=== PATIENT | male | born 1970 | race African-American/Black ===

== ENCOUNTER 2022-11-15 12:38 | Inpatient (IN) | payer MEDICAID, MEDICARE ==
[~2022-11-15] VITALS: Ht 172.7 cm; Wt 66.2 kg
[2022-11-15] MEDS ORDERED: ACETAMINOPHEN 325MG TABLET PO ONE (14:15)
[2022-11-15] MEDS ORDERED: METHOCARBAMOL 500MG TABLET PO ONE (14:15)
[2022-11-15] MEDS ORDERED: KETOROLAC 30MG/ML VIAL IM NR (15:30)
[2022-11-15] MEDS ORDERED: KETOROLAC 30MG/ML VIAL IM ONE (16:00)
[2022-11-15] MEDS ORDERED: OXYCODONE HCL/ACETAMINOPHEN 5/325MG TABLET PO ONE (16:15)
[2022-11-15 18:22] LABS: HEMATOCRIT. 38.4 % (42.0-52.0); HEMOGLOBIN. 12.9 g/dL (14.0-18.0); MEAN CORPUSCULAR HEMOGLOBIN 31.4 pg (28.0-32.0); MEAN CORPUSCULAR VOLUME 93.7 fL (80.0-94.0); MEAN PLATELET VOLUME 11.3 fl (7.4-10.4); PLATELET 140 x1000/uL (130-400); RED CELL DISTRIBUTION WIDTH 15.1 % (11.6-14.6)
[2022-11-15 18:41] LABS: CHLORIDE 96 mEq/L (98-107); PLATELET ESTIMATE NORMAL
[2022-11-15 18:50] LABS: CREATINE KINASE 844 IU/L (39-308)
[2022-11-15] MEDS ORDERED: OXYCODONE HCL/ACETAMINOPHEN 5/325MG TABLET PO NR (19:30)
[2022-11-15] MEDS ORDERED: SODIUM CHLORIDE 0.9% 1,000 ML IV ONE (21:15)
[2022-11-15] MEDS ORDERED: ONDANSETRON HCL 4MG/2ML INJ IV PRN (21:30)
[2022-11-15] MEDS ORDERED: NITROGLYCERIN 0.4MG TABLET SL SL PRN (21:30)
[2022-11-15] MEDS ORDERED: CLONIDINE 0.1MG TABLET PO PRN (21:30)
[2022-11-15] MEDS ORDERED: GUAIFENESIN 200MG/10ML SUGAR FREE UDC PO PRN (21:30)
[2022-11-15] MEDS ORDERED: IPRATROPIUM/ALBUTEROL 0.5-3(2.5)MG/3ML NEB NEB PRN (21:30)
[2022-11-15] MEDS ORDERED: ACETAMINOPHEN 325MG TABLET PO PRN (21:30)
[2022-11-15] MEDS ORDERED: ZOLPIDEM TARTRATE 5MG TABLET PO PRN (21:30)
[2022-11-15] MEDS ORDERED: DOCUSATE SODIUM 100MG CAPSULE PO PRN (21:30)
[2022-11-15] MEDS ORDERED: MAGNESIUM/ALUMINUM HYDROXIDE/SIMETHICONE 30ML UDC PO PRN (21:30)
[2022-11-15 22:08] LABS: T4 FREE 1.23 ng/dL (0.76-1.46)
[2022-11-15 22:39] LABS: VITAMIN B12 SERUM 712 pg/mL (211-911)
[2022-11-16] MEDS ORDERED: KETOROLAC 30MG/ML VIAL IV NR
[2022-11-16 04:54] LABS: BASOPHILS % 0.9 % (0.0-2.0); EOSINOPHILS % 2.4 % (0.0-5.0); HEMATOCRIT. 35.2 % (42.0-52.0); HEMOGLOBIN. 11.9 g/dL (14.0-18.0); LYMPHOCYTES % 8.6 % (20.0-50.0); MEAN CORPUSCULAR HEMOGLOBIN 31.8 pg (28.0-32.0); MEAN PLATELET VOLUME 11.1 fl (7.4-10.4); MONOCYTES % 12.8 % (2.0-8.0); NEUTROPHILS % 75.3 % (40.0-76.0); PLATELET 153 x1000/uL (130-400); RED BLOOD CELL COUNT 3.75 mill/uL (4.7-6.1); RED CELL DISTRIBUTION WIDTH 15.3 % (11.6-14.6)
[2022-11-16 05:25] LABS: CHLORIDE 98 mEq/L (98-107)
[2022-11-16 05:31] LABS: PHOSPHORUS 6.3 mg/dL (2.5-4.9)
[2022-11-16] MEDS: AMLODIPINE 5MG TABLET PO SCH (09:00)
[2022-11-16] MEDS: ENOXAPARIN 30MG/0.3ML SYR SUBCUT SCH (10:23)
[2022-11-16] MEDS: FAMOTIDINE 20MG TABLET PO SCH (10:24)
[2022-11-16] MEDS: TRAMADOL 50MG TABLET PO PRN ×2 (10:25→20:20)
[2022-11-16] MEDS ORDERED: NALOXONE HCL 0.4MG/ML VIAL IV PRN (11:00)
[2022-11-16] MEDS: SEVELAMER CARBONATE 800 MG TABLET PO SCH ×2 (14:20→19:50)
[2022-11-16 22:59] LABS: HEPATITIS B SURFACE ANTIGEN NEGATIVE
[2022-11-17] VITALS (15 sets, daily range): BP systolic 110–162; BP diastolic 51–99
[2022-11-17] MEDS: ACETAMINOPHEN 325MG TABLET PO PRN (00:42)
[2022-11-17] MEDS: TRAMADOL 50MG TABLET PO PRN ×2 (05:53→18:44)
[2022-11-17 07:55] LABS: EOSINOPHILS % 5.5 % (0.0-5.0); HEMATOCRIT. 33.4 % (42.0-52.0); HEMOGLOBIN. 11.2 g/dL (14.0-18.0); LYMPHOCYTES % 11.2 % (20.0-50.0); MEAN CORPUSCULAR HEMOGLOBIN 31.3 pg (28.0-32.0); MEAN CORPUSCULAR VOLUME 93.1 fL (80.0-94.0); MEAN PLATELET VOLUME 11.8 fl (7.4-10.4); MONOCYTES % 12.9 % (2.0-8.0); NEUTROPHILS % 69.4 % (40.0-76.0); PLATELET 143 x1000/uL (130-400); RED BLOOD CELL COUNT 3.59 mill/uL (4.7-6.1); RED CELL DISTRIBUTION WIDTH 14.9 % (11.6-14.6)
[2022-11-17 08:19] LABS: PHOSPHORUS 7.7 mg/dL (2.5-4.9)
[2022-11-17] MEDS: SEVELAMER CARBONATE 800 MG TABLET PO SCH ×3 (08:43→18:44)
[2022-11-17] MEDS: FAMOTIDINE 20MG TABLET PO SCH (08:44)
[2022-11-17] MEDS: ENOXAPARIN 30MG/0.3ML SYR SUBCUT SCH (09:00)
[2022-11-17] MEDS: AMLODIPINE 5MG TABLET PO SCH (09:00)
[2022-11-17] MEDS: DIPHENHYDRAMINE 50MG CAPSULE PO PRN (10:30)
[2022-11-17] MEDS ORDERED: ALBUTEROL (0.083%) 2.5MG/3ML NEB HHN PRN (22:30)
[2022-11-17] MEDS ORDERED: IPRATROPIUM BROMIDE (0.02%) 0.5MG/2.5ML NEB HHN PRN (22:30)
[2022-11-18] VITALS: BP 134/82
[2022-11-18] MEDS: TRAMADOL 50MG TABLET PO PRN ×2 (03:56→15:58)
[2022-11-18 04:00] VITALS: BP 132/80
[2022-11-18 08:00] VITALS: BP 147/85
[2022-11-18 08:00] LABS: EOSINOPHILS % 6.9 % (0.0-5.0); HEMATOCRIT. 34.8 % (42.0-52.0); HEMOGLOBIN. 11.8 g/dL (14.0-18.0); LYMPHOCYTES % 12.3 % (20.0-50.0); MEAN CORPUSCULAR HEMOGLOBIN 31.7 pg (28.0-32.0); MEAN CORPUSCULAR VOLUME 93.5 fL (80.0-94.0); MEAN PLATELET VOLUME 11.3 fl (7.4-10.4); MONOCYTES % 14.4 % (2.0-8.0); NEUTROPHILS % 65.4 % (40.0-76.0); PLATELET 150 x1000/uL (130-400); RED BLOOD CELL COUNT 3.72 mill/uL (4.7-6.1); RED CELL DISTRIBUTION WIDTH 14.8 % (11.6-14.6)
[2022-11-18 08:14] LABS: CHLORIDE 98 mEq/L (98-107)
[2022-11-18] MEDS: AMLODIPINE 5MG TABLET PO SCH (09:00)
[2022-11-18] MEDS: ENOXAPARIN 30MG/0.3ML SYR SUBCUT SCH (09:00)
[2022-11-18] MEDS: FAMOTIDINE 20MG TABLET PO SCH (10:50)
[2022-11-18] MEDS: SEVELAMER CARBONATE 800 MG TABLET PO SCH ×3 (10:50→17:50)
[2022-11-18 12:00] VITALS: BP 132/73
[2022-11-18] MEDS ORDERED: SODIUM POLYSTYRENE SULFONATE 15 G/60 ML BOT PO SCH (12:30)
[2022-11-18 16:00] VITALS: BP 126/78
[2022-11-18 20:00] VITALS: BP 156/82
[2022-11-19] VITALS: BP 137/91
[2022-11-19] MEDS: TRAMADOL 50MG TABLET PO PRN ×3 (02:04→23:26)
[2022-11-19 04:00] VITALS: BP 134/89
[2022-11-19 07:45] LABS: BASOPHILS % 0.9 % (0.0-2.0); EOSINOPHILS % 5.9 % (0.0-5.0); HEMOGLOBIN. 11.8 g/dL (14.0-18.0); LYMPHOCYTES % 12.3 % (20.0-50.0); MEAN CORPUSCULAR HEMOGLOBIN 32.1 pg (28.0-32.0); MEAN CORPUSCULAR VOLUME 92.7 fL (80.0-94.0); MEAN PLATELET VOLUME 11.6 fl (7.4-10.4); MONOCYTES % 13.8 % (2.0-8.0); NEUTROPHILS % 67.1 % (40.0-76.0); PLATELET 151 x1000/uL (130-400); RED BLOOD CELL COUNT 3.67 mill/uL (4.7-6.1); RED CELL DISTRIBUTION WIDTH 14.6 % (11.6-14.6)
[2022-11-19 08:00] VITALS: BP 134/84
[2022-11-19] MEDS: SEVELAMER CARBONATE 800 MG TABLET PO SCH ×3 (08:42→17:50)
[2022-11-19] MEDS: AMLODIPINE 5MG TABLET PO SCH (08:43)
[2022-11-19] MEDS: FAMOTIDINE 20MG TABLET PO SCH (08:44)
[2022-11-19] MEDS: ENOXAPARIN 30MG/0.3ML SYR SUBCUT SCH (08:44)
[2022-11-19] MEDS ORDERED: SODIUM POLYSTYRENE SULFONATE 15 G/60 ML BOT PO NR (10:30)
[2022-11-19 12:00] VITALS: BP 137/85
[2022-11-19 16:00] VITALS: BP 153/83
[2022-11-19 20:00] VITALS: BP 153/103
[2022-11-20] VITALS (15 sets, daily range): BP systolic 127–179; BP diastolic 65–98
[2022-11-20 07:01] LABS: BASOPHILS % 0.9 % (0.0-2.0); EOSINOPHILS % 5.5 % (0.0-5.0); HEMATOCRIT. 33.9 % (42.0-52.0); HEMOGLOBIN. 11.6 g/dL (14.0-18.0); LYMPHOCYTES % 12.5 % (20.0-50.0); MEAN CORPUSCULAR HEMOGLOBIN 31.8 pg (28.0-32.0); MEAN CORPUSCULAR VOLUME 92.7 fL (80.0-94.0); MEAN PLATELET VOLUME 10.9 fl (7.4-10.4); MONOCYTES % 13.3 % (2.0-8.0); NEUTROPHILS % 67.8 % (40.0-76.0); PLATELET 169 x1000/uL (130-400); RED BLOOD CELL COUNT 3.66 mill/uL (4.7-6.1); RED CELL DISTRIBUTION WIDTH 14.4 % (11.6-14.6)
[2022-11-20 08:23] LABS: PHOSPHORUS 1.6 mg/dL (2.5-4.9)
[2022-11-20] MEDS: ENOXAPARIN 30MG/0.3ML SYR SUBCUT SCH (09:00)
[2022-11-20] MEDS: AMLODIPINE 5MG TABLET PO SCH (09:00)
[2022-11-20] MEDS: FAMOTIDINE 20MG TABLET PO SCH (09:00)
[2022-11-20] MEDS: SEVELAMER CARBONATE 800 MG TABLET PO SCH ×3 (09:36→17:26)
[2022-11-20] MEDS: DIPHENHYDRAMINE 50MG CAPSULE PO PRN (13:26)
[2022-11-20] MEDS ORDERED: SODIUM POLYSTYRENE SULFONATE 15 G/60 ML BOT PO NR (14:00)
[2022-11-20] MEDS ORDERED: POLYVINYL ALCOHOL OPHTH DROPS 15ML BOTHEYE PRN (14:45)
[2022-11-20] MEDS: TRAMADOL 50MG TABLET PO PRN (17:27)
[2022-11-21] VITALS: BP 133/95
[2022-11-21] MEDS: ACETAMINOPHEN 325MG TABLET PO PRN ×2 (00:32→10:45)
[2022-11-21 04:00] VITALS: BP 128/73
[2022-11-21 07:18] LABS: PHOSPHORUS 7.8 mg/dL (2.5-4.9)
[2022-11-21 07:33] LABS: BASOPHILS % 0.9 % (0.0-2.0); EOSINOPHILS % 3.8 % (0.0-5.0); HEMATOCRIT. 35.2 % (42.0-52.0); HEMOGLOBIN. 12.1 g/dL (14.0-18.0); LYMPHOCYTES % 9.6 % (20.0-50.0); MEAN CORPUSCULAR HEMOGLOBIN 32.1 pg (28.0-32.0); MEAN CORPUSCULAR VOLUME 93.5 fL (80.0-94.0); MEAN PLATELET VOLUME 11.2 fl (7.4-10.4); MONOCYTES % 13.8 % (2.0-8.0); NEUTROPHILS % 71.9 % (40.0-76.0); PLATELET 161 x1000/uL (130-400); RED BLOOD CELL COUNT 3.76 mill/uL (4.7-6.1); RED CELL DISTRIBUTION WIDTH 14.3 % (11.6-14.6)
[2022-11-21 07:52] VITALS: BP 153/86
[2022-11-21] MEDS: SEVELAMER CARBONATE 800 MG TABLET PO SCH ×2 (08:30→13:15)
[2022-11-21] MEDS: AMLODIPINE 5MG TABLET PO SCH (08:30)
[2022-11-21] MEDS: ENOXAPARIN 30MG/0.3ML SYR SUBCUT SCH (09:00)
[2022-11-21] MEDS: FAMOTIDINE 20MG TABLET PO SCH (09:00)
[2022-11-21 12:00] VITALS: BP 126/89
[2022-11-21] MEDS ORDERED: HYDROCODONE/ACETAMINOPHEN 5/325MG TABLET PO NR (12:45)
[2022-11-21 15:51] VITALS: BP 130/80
[2022-11-21 16:15] VITALS: BP 126/89
== END 2022-11-21 19:05 | disposition home health service (06) | DRG 351 ==
LOC: ER 12:38 → MICUSO 21:02 → EDBEDREQ 21:14 → EDBEDREQTM 21:14 → SUPCPDRO 21:24 → 6EST 11-17 01:28
PROVIDERS: ADMIT Internal Medicine; ATTEND Internal Medicine
PROC: 5A1D70Z Performance of Urinary Filtration, Intermittent, Less than 6 Hours Per Day (ICD-10-PCS; principal; 2022-11-20)
DX: S76.012A Strain of muscle, fascia and tendon of left hip, initial encounter (principal); M62.82 Rhabdomyolysis; I12.0 Hypertensive chronic kidney disease with stage 5 chronic kidney disease or end stage renal disease; E44.1 Mild protein-calorie malnutrition; D64.9 Anemia, unspecified; E03.9 Hypothyroidism, unspecified; W10.9XXA Fall (on) (from) unspecified stairs and steps, initial encounter; E78.5 Hyperlipidemia, unspecified; N18.6 End stage renal disease; E21.1 Secondary hyperparathyroidism, not elsewhere classified; Z99.2 Dependence on renal dialysis; Z88.0 Allergy status to penicillin; Z79.899 Other long term (current) drug therapy; Z94.0 Kidney transplant status; Z91.199 Patient's noncompliance with other medical treatment and regimen due to unspecified reason; Z82.49 Family history of ischemic heart disease and other diseases of the circulatory system; Z79.52 Long term (current) use of systemic steroids; Y93.89 Activity, other specified; Y92.89 Other specified places as the place of occurrence of the external cause; Y99.8 Other external cause status; Z68.22 Body mass index [BMI] 22.0-22.9, adult
CPT/HCPCS: 36415; 72195; 73502; 80048; 80053; 80061; 82550; 82607; 82746; 83036; 83540; 83550; 83735; 84100; 84439; 84443; 85025; 85379; 86705; 86709; 86803; 87340; 90935; 93306; 93970; 93971; 97162; 97535; 99285; J1650; J1885; J7030; Q0163

== ENCOUNTER 2025-01-12 16:44 | Emergency (ER) | payer BC, MEDICAID ==
[~2025-01-12] VITALS: Ht 172.7 cm; Wt 64.0 kg
[2025-01-12 16:47] VITALS: BP 124/75; TEMP 36.7; O2SAT 92
[2025-01-12 16:48] VITALS: PULSE 82; RESP 18; O2SAT 92
[2025-01-12 17:32] LABS: HEMATOCRIT. 27.2 % (42.0-52.0); HEMOGLOBIN. 8.9 g/dL (14.0-18.0); MEAN CORPUSCULAR HEMOGLOBIN 31.3 pg (28.0-32.0); MEAN CORPUSCULAR HGB CONC 32.9 g/dL (31.0-37.0); MEAN CORPUSCULAR VOLUME 95.3 fL (80.0-94.0); MEAN PLATELET VOLUME 10.9 fl (7.4-10.4); PLATELET 145 x1000/uL (130-400); RED BLOOD CELL COUNT 2.85 mill/uL (4.7-6.1); RED CELL DISTRIBUTION WIDTH 16.2 % (11.6-14.6); WHITE BLOOD COUNT 6.8 x1000/uL (4.5-11.0)
[2025-01-12 17:33] LABS: CHLORIDE 96 mEq/L (98-107); POTASSIUM 4.1 mEq/L (3.5-5.1); SODIUM 137 mEq/L (136-145)
[2025-01-12 17:34] LABS: CARBON DIOXIDE 34 mEq/L (21-32)
[2025-01-12 17:35] LABS: CALCIUM 8.1 mg/dL (8.7-10.4)
[2025-01-12 17:40] LABS: GLUCOSE 168 mg/dL (70-105); UREA NITROGEN BLOOD 33 mg/dL (9-23)
[2025-01-12 17:42] LABS: TROPONIN I HIGH SENSITIVITY 17 ng/L (3.0-53)
[2025-01-12 17:44] LABS: DIFFERENTIAL COMMENT 1
[2025-01-12 17:48] LABS: CREATININE 7.9 mg/dL (0.6-1.3)
[2025-01-12] MEDS ORDERED: CEFP200T13 MT (18:46)
[2025-01-12] MEDS ORDERED: AZIT500T8 MT (18:47)
[2025-01-12 22:40] LABS: ANISOCYTOSIS 1+; PLATELET ESTIMATE NORMAL
== END 2025-01-12 19:20 | disposition home or self-care (01) ==
LOC: ER 16:44
DX: J18.9 Pneumonia, unspecified organism (principal); D64.9 Anemia, unspecified; N18.6 End stage renal disease; Z99.2 Dependence on renal dialysis; Z98.890 Other specified postprocedural states; Z79.899 Other long term (current) drug therapy; Z88.0 Allergy status to penicillin
CPT/HCPCS: 36415; 71045; 80048; 84484; 85025; 93005; 99285

== ENCOUNTER 2025-05-11 19:58 | Inpatient (IN) | payer BC ==
[~2025-05-11] VITALS: Ht 172.7 cm; Wt 57.7 kg
[~2025-05-11 19:58] MED LIST: AZIT500T8 MT; CEFP200T13 MT
[2025-05-11 21:32] LABS: BASOPHILS % 1.2 % (0.0-2.0); EOSINOPHILS % 5.6 % (0.0-5.0); HEMATOCRIT. 29.1 % (42.0-52.0); HEMOGLOBIN. 9.6 g/dL (14.0-18.0); LYMPHOCYTES % 10.5 % (20.0-50.0); MEAN PLATELET VOLUME 10.6 fl (7.4-10.4); MONOCYTES % 11.2 % (2.0-8.0); NEUTROPHILS % 71.5 % (40.0-76.0); PLATELET 120 x1000/uL (130-400); RED BLOOD CELL COUNT 3.06 mill/uL (4.7-6.1); RED CELL DISTRIBUTION WIDTH 15.6 % (11.6-14.6)
[2025-05-11] MEDS: AMLODIPINE 10MG TABLET PO ONE (21:41)
[2025-05-11 21:45] LABS: UREA NITROGEN BLOOD 20 mg/dL (9-23)
[2025-05-11 21:47] LABS: TROPONIN I HIGH SENSITIVITY 23 ng/L (3.0-53)
[2025-05-11 21:51] LABS: CREATININE 7.9 mg/dL (0.6-1.3)
[2025-05-12 02:52] VITALS: BP 161/103; PULSE 72; RESP 18; TEMP 36.8
[2025-05-12] MEDS ORDERED: ONDANSETRON HCL 4MG/2ML INJ IV PRN (03:45)
[2025-05-12 04:02] VITALS: BP 161/103; PULSE 72; RESP 18; TEMP 36.8; O2SAT 99
[2025-05-12] MEDS: CLONIDINE 0.1MG TABLET PO PRN (05:07)
[2025-05-12 08:00] VITALS: BP 143/96; PULSE 63; RESP 18; TEMP 36.7; O2SAT 98
[2025-05-12] MEDS: HEPARIN 5000 UNITS/ML VIAL SUBCUT SCH (08:24)
[2025-05-12] MEDS: PANTOPRAZOLE SODIUM 40 MG/VIAL IV SCH (08:33)
[2025-05-12 10:19] LABS: PLATELET 116 x1000/uL (130-400); RED BLOOD CELL COUNT 3.04 mill/uL (4.7-6.1); RED CELL DISTRIBUTION WIDTH 15.9 % (11.6-14.6)
[2025-05-12 10:36] LABS: TROPONIN I HIGH SENSITIVITY 22.0 ng/L (3.0-53)
[2025-05-12 10:39] LABS: UREA NITROGEN BLOOD 26.0 mg/dL (9-23)
[2025-05-12 10:51] LABS: CREATININE 8.9 mg/dL (0.6-1.3)
[2025-05-12 12:00] VITALS: BP 137/79; PULSE 67; RESP 16; TEMP 36.4; O2SAT 97
[2025-05-12 14:40] LABS: HEPATITIS A AB IGM NEGATIVE (Negative)
[2025-05-12 14:41] LABS: HEPATITIS B CORE AB IGM NEGATIVE (Negative)
[2025-05-12 14:42] LABS: HEPATITIS C AB NON REACTIVE (Neg) (Negative)
[2025-05-12] MEDS: HYDROCODONE/ACETAMINOPHEN 5/325MG TABLET PO PRN (15:49)
[2025-05-12 16:00] VITALS: BP 169/99; PULSE 73; RESP 18; TEMP 36.5; O2SAT 97
[2025-05-12 20:00] VITALS: BP 135/66; PULSE 90; RESP 18; TEMP 36.5; O2SAT 97
[2025-05-12] MEDS: EPOETIN ALFA 4000UNITS/ML VIAL SUBCUT SCH (22:03)
[2025-05-12] MEDS ORDERED: IOHEXOL-350 100 ML BOTTLE ONE (22:52)
[2025-05-13] VITALS (15 sets, daily range): BP systolic 138–186; BP diastolic 55–100; PULSE 66–80; RESP 18–20; TEMP 36.5–37.00296; O2SAT 95–99
[2025-05-13] MEDS ORDERED: NALOXONE HCL 0.4MG/ML VIAL IV PRN (09:30)
[2025-05-13] MEDS: DIPHENHYDRAMINE 50MG/ML VIAL IV NR (12:35)
[2025-05-13 12:59] LABS: BASOPHILS % 1.3 % (0.0-2.0); EOSINOPHILS % 7.1 % (0.0-5.0); HEMATOCRIT. 27.7 % (42.0-52.0); HEMOGLOBIN. 9.2 g/dL (14.0-18.0); LYMPHOCYTES % 11.5 % (20.0-50.0); MEAN PLATELET VOLUME 10.9 fl (7.4-10.4); MONOCYTES % 5.8 % (2.0-8.0); NEUTROPHILS % 74.3 % (40.0-76.0); PLATELET 107 x1000/uL (130-400); RED BLOOD CELL COUNT 2.93 mill/uL (4.7-6.1); RED CELL DISTRIBUTION WIDTH 15.5 % (11.6-14.6)
[2025-05-13 13:21] LABS: UREA NITROGEN BLOOD 40 mg/dL (9-23)
[2025-05-13 13:22] LABS: ASPARTATE AMINOTRANSFERASE 15 IU/L (<34)
[2025-05-13 13:23] LABS: BILIRUBIN DIRECT 0.2 mg/dL (<=3.0); BILIRUBIN TOTAL 0.6 mg/dL (0.1-1.0); PHOSPHORUS 6.3 mg/dL (2.5-4.9); PROTEIN TOTAL 6.1 g/dL (6.0-8.3)
[2025-05-13 14:54] LABS: CREATININE 10.4 mg/dL (0.6-1.3)
[2025-05-13] MEDS ORDERED: NIFE-33 MT (16:36)
[2025-05-13] MEDS ORDERED: HYDR50TA40 MT (16:36)
[2025-05-13] MEDS: CLONIDINE 0.1MG TABLET PO SCH (16:50)
[2025-05-14] MEDS ORDERED: EPOETIN ALFA-EPBX 4,000 UNIT/ML VIAL SUBCUT SCH (21:00)
== END 2025-05-13 17:45 | disposition home or self-care (01) | DRG 304 ==
LOC: ER 19:58 → EDBEDREQ 21:04 → 8WST 23:23 → EDBEDREQ 23:34 → ENRESERV 23:58
PROVIDERS: ADMIT Internal Medicine; ATTEND Internal Medicine
PROC: 5A1D70Z Performance of Urinary Filtration, Intermittent, Less than 6 Hours Per Day (ICD-10-PCS; principal; 2025-05-13)
DX: I16.0 Hypertensive urgency (principal); N18.6 End stage renal disease; N25.81 Secondary hyperparathyroidism of renal origin; I12.0 Hypertensive chronic kidney disease with stage 5 chronic kidney disease or end stage renal disease; D64.9 Anemia, unspecified; R06.02 Shortness of breath; E03.9 Hypothyroidism, unspecified; E78.5 Hyperlipidemia, unspecified; Z99.2 Dependence on renal dialysis; Z88.0 Allergy status to penicillin; Z79.899 Other long term (current) drug therapy; Z55.6 Problems related to health literacy; Z82.49 Family history of ischemic heart disease and other diseases of the circulatory system
CPT/HCPCS: 36415; 71045; 71275; 80048; 80076; 83735; 83880; 84100; 84484; 85025; 85027; 86705; 86709; 87340; 90935; 93005; 99285; A4606; J0885; J1200; J1644; J2470; Q9967